=== PATIENT | male | born 1985 | race Caucasian/White ===

== ENCOUNTER → 2016-04-20 | Outpatient (CLI) | payer OTHER ==
--- NOTE | 2016-04-20 12:40 | MR ---
MRI Lower Extremity, Left Knee History: Left knee pain. Continued pain since December. Clicking and popping. ICD-10 code: M22.42. Technique: MRI is performed of the left knee using a 3 [employer] MRI system. Sagittal, coronal, and axial imaging was obtained with standard imaging sequences. Findings General: No significant joint effusion. There is a thin small medial suprapatellar plica. No evidence for bone contusion or occult fracture. Ligaments and Tendons: Anterior cruciate ligament is intact. There is lobulated septated fluid collec tion along the proximal to mid anterior cruciate ligament measuring 2 cm x 1 cm. Posterior cruciate l igament is intact. Medial collateral ligament and pes anserinus are unremarkable. Iliotibial band, fi bular collateral ligament. and biceps femoris are unremarkable. Popliteus muscle and tendon are intac t. Menisci and Cartilage: No evidence for meniscal tear. No significant cartilage signal abnormality or attenuation in the medial or lateral compartment. Extensor Mechanism: Minimal cartilage signal abnormality is seen in the patella without surface irreg ularity or attenuation. Quadriceps tendon and patellar tendon are unremarkable. Impressions 1. 2 x 1-cm ganglion along the proximal mid anterior cruciate ligament. 2. Minimal grade 1 chondromalacia patellae. 3. Thin medial suprapatellar plica.
== END ==
LOC: FIMAGING 11:26
PROVIDERS: ATTEND Orthopaedic Surgery
DX: M22.42 Chondromalacia patellae, left knee (principal); M67.462 Ganglion, left knee

== ENCOUNTER 2016-09-26 17:32 | Emergency (ER) | payer OTHER ==
[2016-09-26 17:38] VITALS: RESP 16; TEMP 98.1
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
[2016-09-26 19:06] VITALS: BP 112/69; PULSE 65; O2SAT 95
== END 2016-09-26 19:24 | disposition home or self-care (01) ==
PROC: 0HQ1XZZ Repair Face Skin, External Approach (ICD-10-PCS; principal; 2016-09-26)
DX: S01.81XA Laceration without foreign body of other part of head, initial encounter (principal); S60.221A Contusion of right hand, initial encounter; V18.2XXA Unspecified pedal cyclist injured in noncollision transport accident in nontraffic accident, initial encounter

== ENCOUNTER → 2017-06-04 | Outpatient (CLI) | payer OTHER | LOC: FIMAGING 14:30 | PROVIDERS: ATTEND Physician Assistant | DX: J18.9 Pneumonia, unspecified organism (principal) ==

== ENCOUNTER → 2017-07-23 | Outpatient (CLI) | payer OTHER | LOC: FIMAGING 12:35 | PROVIDERS: ATTEND Internal Medicine | DX: Z09 Encounter for follow-up examination after completed treatment for conditions other than malignant neoplasm (principal); Z87.01 Personal history of pneumonia (recurrent) ==